=== PATIENT | male | born 1980 | race Caucasian/White ===

== ENCOUNTER 2022-08-02 10:21 | Outpatient (CLI) | payer OTHER, SELFPAY ==
[2022-08-02 12:39] LABS: Chloride* 105 mmol/L (96-114)
[2022-08-02 12:40] LABS: Albumin* 4.5 g/dL (3.3-5.0); Potassium* 4.5 mmol/L (3.6-5.1); Sodium* 140 mmol/L (135-149)
[2022-08-02 12:42] LABS: Carbon Dioxide* 31 mmol/L (20-32); Cholesterol* 233 mg/dL (90-199)
[2022-08-02 12:43] LABS: Alanine Aminotransferase* 30 U/L (4-50); Alkaline Phosphatase* 51 U/L (40-150); Aspartate Amino Transferase* 59 U/L (12-35); Bilirubin Total* 1.1 mg/dL (0.1-1.5); Blood Urea Nitrogen* 18 mg/dL (5-24); Calcium* 8.9 mg/dL (8.4-10.6); Creatinine* 0.9 mg/dL (0.5-1.5); Estimated Glomerular Filt Rate 109 ml/min; Glucose* 94 mg/dL (60-115); Total Protein* 7.9 g/dL (6.0-8.3); Triglycerides* 151 mg/dL (40-149)
[2022-08-02 12:44] LABS: HDL Cholesterol* 31 mg/dL (>=40); LDL Cholesterol Calculated 172 mg/dL (<100)
== END 2022-08-02 10:22 | disposition home or self-care (01) ==
PROVIDERS: PCP Family Medicine; Visit Provider Family Medicine
DX: Z00.00 Encounter for general adult medical examination without abnormal findings (principal); E78.00 Pure hypercholesterolemia, unspecified; R79.89 Other specified abnormal findings of blood chemistry
CPT/HCPCS: 80053; 80061

== ENCOUNTER 2023-05-19 08:25 | Outpatient (CLI) | payer OTHER, SELFPAY | END 2023-05-19 08:26 | disposition home or self-care (01) | LOC: NFLDREF 05-21 13:01 | PROVIDERS: PCP Family Medicine; Referring Provider Family Medicine; Visit Provider Family Medicine | DX: E78.00 Pure hypercholesterolemia, unspecified (principal); N28.89 Other specified disorders of kidney and ureter; R79.89 Other specified abnormal findings of blood chemistry; F90.9 Attention-deficit hyperactivity disorder, unspecified type; F41.8 Other specified anxiety disorders; Z79.899 Other long term (current) drug therapy | CPT/HCPCS: 80053; 80061; 82652; 84153 ==

== ENCOUNTER 2023-06-19 08:30 | Outpatient (CLI) | payer OTHER, SELFPAY | END 2023-06-19 08:31 | disposition home or self-care (01) | LOC: NFLDREF 06-22 23:53 | PROVIDERS: PCP Family Medicine; Referring Provider Family Medicine; Visit Provider Family Medicine | DX: E78.00 Pure hypercholesterolemia, unspecified (principal); R79.89 Other specified abnormal findings of blood chemistry | CPT/HCPCS: 80053; 80061 ==

== ENCOUNTER 2024-03-03 08:11 | Outpatient (CLI) | payer OTHER, SELFPAY | END 2024-03-03 08:12 | disposition home or self-care (01) | LOC: NFLDREF 03-04 07:34 | PROVIDERS: PCP Family Medicine; Referring Provider Family Medicine; Visit Provider Family Medicine | DX: R79.89 Other specified abnormal findings of blood chemistry (principal); E78.00 Pure hypercholesterolemia, unspecified; R73.03 Prediabetes; E55.9 Vitamin D deficiency, unspecified | CPT/HCPCS: 80053; 80061; 82306; 84443 ==

== ENCOUNTER 2024-03-23 07:59 | Outpatient (CLI) | payer OTHER, SELFPAY ==
--- NOTE | 2024-03-23 09:17 | W.ANESCHARGE ---
Anesthesia Charges Start Date/Time Anesthesia Start Date: 03/23/24 Anesthesia Start Time: 08:52 Stop Date/Time Anesthesia Stop Date: 03/23/24 Anesthesia Stop Time: 09:16
--- NOTE | 2024-03-23 11:49 | W.ANESCHARGE ---
Anesthesia Charges Start Date/Time Anesthesia Start Date: 03/23/24 Anesthesia Start Time: 08:52 Stop Date/Time Anesthesia Stop Date: 03/23/24 Anesthesia Stop Time: 09:16
== END 2024-03-23 08:00 | disposition home or self-care (01) ==
LOC: OP CLINIC 08:00
PROVIDERS: PCP Family Medicine; Visit Provider Surgery
DX: Z12.11 Encounter for screening for malignant neoplasm of colon (principal); K63.5 Polyp of colon
CPT/HCPCS: 00811; 45385; 88305; J2704

== ENCOUNTER 2024-11-25 08:20 | Outpatient (CLI) | payer OTHER, SELFPAY | END 2024-11-25 08:21 | disposition home or self-care (01) | LOC: NFLDREF 11-30 05:26 | PROVIDERS: PCP Family Medicine; Referring Provider Family Medicine; Visit Provider Family Medicine | DX: E78.00 Pure hypercholesterolemia, unspecified (principal); R79.89 Other specified abnormal findings of blood chemistry | CPT/HCPCS: 80061; 80076 ==

== ENCOUNTER 2025-05-26 12:42 | Outpatient (CLI) | payer OTHER, SELFPAY ==
[2025-05-26] MEDS: PERFLUTREN LIPID MICROSPHERES 2 ML VIAL IVP (13:36)
[2025-05-26 13:43] VITALS: BP 154/94; PULSE 94; RESP 18
--- NOTE | 2025-05-26 13:51 | W.PM.STED ---
Stress Test Note Date Date Seen: 05/26/25 Date of test: 05/26/25 Providers Primary care provider: Haider Salgado Stress test physician: Zarina Hamilton Stress Test Note Stress test ordered: Stress Echo Indication for test: Abnormal calcium score, SOB/OLIVA Stress test medicine: Definity Results discussion: Resting EKG: Sinus rhythm, 72 beats per minute. Otherwise appears normal. Resting blood pressure: 132/90 Stress test: Patient is consented on ordered stress test treadmill exercise stress echo and agrees to proceed. Standard Vince protocol was followed. Patient completed 10 minutes 12 seconds of exercise stopping due to meeting target heart rate and exercise capacity. This was equivalent to 11.9 Mets. He had a maximum heart rate of 155 beats per minute which was 100 in 4% of a calculated target heart rate of 148. Patient had no arrhythmia, no chest pain or concerning symptoms. Patient does note that he used to run marathons in he is just noted significant decrease in his exercise tolerance with shortness of breath and dyspnea on exertion which seems to be worsening for him. He did have a calcium score which was abnormal, possibly in the LAD, I do not have results but that is what he remembers. He had no arrhythmia. He was noted to have flipped T-waves in inferolateral leads with [address] depression. This improved with cessation of exercise and was almost back to normal outside of lead 3 at termination of the test. He was asymptomatic. Rate pressure product was 28,210. Impression: Subjectively negative, objectively positive EKG changes with inferolateral changes. Await echo images to couple this for a full formal diagnostic. Follow up suggested: Patient and I did discuss the EKG changes. He is reassured that there is a chance that the EKG changes could represent false-positive abnormality. Is reassuring that he is asymptomatic at this time. We will wait the echo report. If echo does come back positive, patient should be referred to Cardiology for further evaluation. We none the less discuss the need for risk factor reduction with a positive calcium score regardless of test outcome. He is discharged in stable condition.
== END 2025-05-26 13:44 | disposition home or self-care (01) ==
LOC: STRESS 12:43
PROVIDERS: PCP Family Medicine; Visit Provider Family Medicine
DX: I25.10 Atherosclerotic heart disease of native coronary artery without angina pectoris (principal); R07.9 Chest pain, unspecified
CPT/HCPCS: 93016; 93325; 93351; Q9957